=== PATIENT | female | born 1970 | race Caucasian/White ===

== ENCOUNTER 2019-07-17 11:56 | Observation (INO) | payer BC ==
[2019-07-17] MEDS ORDERED: MECLIZINE 12.5 MG TAB PO STA ×2 (12:53→14:55)
[2019-07-17] MEDS ORDERED: SODIUM CHLORIDE 0.9% 1,000 ML IV STA (12:53)
[2019-07-17] MEDS ORDERED: ONDANSETRON 4 MG/2 ML VIAL IVP STA (12:54)
--- NOTE | 2019-07-17 13:35 | ED ---
Dizziness HPI - General Chief Complaint: Dizziness Stated Complaint: dizziness Time Seen by Provider: 07/17/19 12:22 Source: patient Mode of arrival: wheelchair Limitations: no limitations - History of Present Illness Initial Comments: Patient is a 48-year-old female presenting to the emergency Department with complaints of dizziness 4 days. Patient states she had an episode approximate 4 days ago when she turned her head over in the morning and experienced the room spinning. The episodes usually last 1-2 minutes and then her symptoms improved. Patient notices it the worse when she turns her head mostly to the right. Patient states she got concerned when her symptoms started this morning and have been consistent. Patient states she is feeling a little nauseous. Patient denies any fever, chills, chest pain, shortness of breath, belly pain. Patient denies any recent injuries or trauma. Patient denies ever having these symptoms before. Patient has no other complaints at this time. Upon arrival to the ER, vital signs are stable. - Related Data Home Medications Medication Instructions Recorded Confirmed Modafinil [Provigil] 200 mg PO BID 07/17/19 07/17/19 Venlafaxine HCl [Effexor XR] 225 mg PO DAILY 07/17/19 07/17/19 lamoTRIgine [LaMICtal] 200 mg PO HS 07/17/19 07/17/19 Allergies Allergy/AdvReac Type Severity Reaction Status Date / Time atropine [From ] AdvReac Rash/Hives Verified 07/17/19 15:55 bee pollen AdvReac Anaphylaxis Verified 07/17/19 15:55 butorphanol [From Stadol] AdvReac Hallucinati Verified 07/17/19 15:55 ons hyoscyamine [From ] AdvReac Rash/Hives Verified 07/17/19 15:55 phenobarbital [From ] AdvReac Rash/Hives Verified 07/17/19 15:55 scopolamine [From ] AdvReac Rash/Hives Verified 07/17/19 15:55 Review of Systems ROS Statement: Those systems with pertinent positive or pertinent negative responses have been documented in the HPI. ROS Other: All systems not noted in ROS Statement are negative. Past Medical History Additional Past Medical History / Comment(s): narcolepsy History of Any Multi-Drug Resistant Organisms: None Reported Past Surgical History: No Surgical Hx Reported Past Psychological History: Bipolar Smoking Status: Never smoker Past Alcohol Use History: Occasional Past Drug Use History: None Reported General Exam - General Exam Comments Initial Comments: GENERAL: Well-appearing, well-nourished and in no acute distress. HEAD: Atraumatic, normocephalic. EYES: Pupils equal round and reactive to light, extraocular movements intact, sclera anicteric, conjunctiva are normal. ENT: TMs normal, nares patent, oropharynx clear without exudates. Moist mucous membranes. NECK: Normal range of motion, supple without lymphadenopathy or JVD. LUNGS: Breath sounds clear to auscultation bilaterally and equal. No wheezes rales or rhonchi. HEART: Regular rate and rhythm without murmurs, rubs or gallops. ABDOMEN: Soft, nontender, normoactive bowel sounds. No guarding, no rebound. No masses appreciated. : Deferred EXTREMITIES: Normal range of motion, no pitting or edema. No clubbing or cyanosis. NEUROLOGICAL: Cranial nerves II through XII grossly intact. Normal speech, normal gait. PSYCH: Normal mood, normal affect. SKIN: Warm, Dry, normal turgor, no rashes or lesions noted. Limitations: no limitations Course Vital Signs 07/17/19 07/17/19 07/17/19 12:02 14:28 16:43 Temperature 97.7 F Pulse Rate 75 70 67 Respiratory 16 18 18 Rate Blood Pressure 134/82 139/90 136/86 O2 Sat by Pulse 99 99 98 Oximetry EKG Findings - EKG Comments: EKG Findings:: Ventricular rate 71, MS interval 140, QTC 4:15. Normal sinus rhythm. No acute ST segment changes. Medical Decision Making - Medical Decision Making Patient is a 40-year-old female presenting with vertigo-type symptoms 4 days. Her symptoms started intermittently but then today they have been constant. Exam is unremarkable today. No red flag symptoms. Lab work shows no acute processes. Patient was given fluids, Zofran, Antivert, Reglan, Valium, Benadryl without relief of symptoms. At this time a CT of the head was obtained and shows no acute abnormalities. Case is discussed with Dr. Sanchez who agrees patient should be admitted under observation with consult to neurology. Patient has agreement with this plan of care. We will continue with meclizine and Reglan and as needed. Patient was accepted by Dr. Goins. - Lab Data Result diagrams: 07/17/19 13:19 07/17/19 13:19 Lab Results 07/17/19 07/17/19 07/17/19 Range/Units 12:20 13:19 13:19 WBC 8.4 (3.8-10.6) k/uL RBC 4.40 (3.80-5.40) m/uL Hgb 13.8 (11.4-16.0) gm/dL Hct 41.4 (34.0-46.0) % MCV 94.1 (80.0-100.0) fL MCH 31.5 (25.0-35.0) pg MCHC 33.4 (31.0-37.0) g/dL RDW 12.4 (11.5-15.5) % Plt Count 318 (150-450) k/uL Neutrophils % 66 % Lymphocytes % 24 % Monocytes % 4 % Eosinophils % 4 % Basophils % 1 % Neutrophils # 5.5 (1.3-7.7) k/uL Lymphocytes # 2.0 (1.0-4.8) k/uL Monocytes # 0.4 (0-1.0) k/uL Eosinophils # 0.3 (0-0.7) k/uL Basophils # 0.1 (0-0.2) k/uL Sodium 139 (137-145) mmol/L Potassium 4.6 (3.5-5.1) mmol/L Chloride 107 (98-107) mmol/L Carbon Dioxide 25 (22-30) mmol/L Anion Gap 7 mmol/L BUN 10 (7-17) mg/dL Creatinine 0.83 (0.52-1.04) mg/dL Est GFR (CKD-EPI)AfAm >90 (>60 ml/min/1.73 sqM) Est GFR (CKD-EPI)NonAf 84 (>60 ml/min/1.73 sqM) Glucose 96 (74-99) mg/dL Calcium 9.1 (8.4-10.2) mg/dL Total Bilirubin 0.6 (0.2-1.3) mg/dL AST 20 (14-36) U/L ALT 17 (9-52) U/L Alkaline Phosphatase 69 (38-126) U/L Total Protein 7.5 (6.3-8.2) g/dL Albumin 4.1 (3.5-5.0) g/dL Urine Color Yellow Urine Appearance Clear (Clear) Urine pH 5.5 (5.0-8.0) Ur Specific [place] 1.014 (1.001-1.035) Urine Protein Negative (Negative) Urine Glucose (UA) Negative (Negative) Urine Ketones Negative (Negative) Urine Blood Negative (Negative) Urine Nitrite Negative (Negative) Urine Bilirubin Negative (Negative) Urine Urobilinogen <2.0 (<2.0) mg/dL Ur Leukocyte Esterase Trace H (Negative) Urine RBC 3 (0-5) /hpf Urine WBC 2 (0-5) /hpf Ur Squamous Epith Cells 3 (0-4) /hpf Urine Bacteria Rare H (None) /hpf Urine Mucus Occasional H (None) /hpf Disposition Clinical Impression: Vertigo Disposition: [facility] Condition: Stable Is patient prescribed a controlled substance at d/c from ED?: No Decision Date: 07/17/19 Decision Time: 17:29
[2019-07-17 13:40] LABS: Basophils # (A) 0.1 k/uL (0-0.2); Basophils % (A) 1 %; Eosinophils # (A) 0.3 k/uL (0-0.7); Eosinophils % (A) 4 %; HCT 41.4 % (34.0-46.0); HGB 13.8 gm/dL (11.4-16.0); Lymphocytes % (A) 24 %; MCH 31.5 pg (25.0-35.0); MCHC 33.4 g/dL (31.0-37.0); MCV 94.1 fL (80.0-100.0); Mean Platelet Volume 6.8; Monocytes # (A) 0.4 k/uL (0-1.0); Monocytes % (A) 4 %; Neutrophils # (A) 5.5 k/uL (1.3-7.7); Neutrophils % (A) 66 %; Platelet Count 318 k/uL (150-450); RDW 12.4 % (11.5-15.5); WBC 8.4 k/uL (3.8-10.6)
[2019-07-17 13:48] LABS: ALT 17 U/L (9-52); AST 20 U/L (14-36); African American GFR (CKD) >90 (>60 ml/min/1.73 sqM); Albumin 4.1 g/dL (3.5-5.0); Alkaline Phosphatase 69 U/L (38-126); Anion Gap 7 mmol/L; Blood Urea Nitrogen 10 mg/dL (7-17); Calcium 9.1 mg/dL (8.4-10.2); Carbon Dioxide 25 mmol/L (22-30); Chloride 107 mmol/L (98-107); Glucose 96 mg/dL (74-99); Non-African American GFR(CKD) 84 (>60 ml/min/1.73 sqM); Potassium 4.6 mmol/L (3.5-5.1); Sodium 139 mmol/L (137-145); Total Bilirubin 0.6 mg/dL (0.2-1.3); Total Protein 7.5 g/dL (6.3-8.2)
[2019-07-17 14:01] LABS: Appearance,Urine Clear (Clear); Bacteria,Urine Rare /hpf; Bilirubin,Urine Negative (Negative); Blood,Urine Negative (Negative); Color,Urine Yellow; Glucose,Urine (UA) Negative (Negative); Ketones,Urine Negative (Negative); Leukocyte Esterase,Urine Trace (Negative); Mucus,Urine Occasional /hpf; Nitrite,Urine Negative (Negative); PH, Urine 5.5 (5.0-8.0); Protein,Urine Negative (Negative); RBC,Urine 3 /hpf (0-5); Specific Gravity,Urine 1.014 (1.001-1.035); Squamous Epithelial Cell,Urine 3 /hpf (0-4); Urobilinogen,Urine <2.0 mg/dL (<2.0); WBC,Urine 2 /hpf (0-5)
[2019-07-17] MEDS ORDERED: diphenhydrAMINE 50 MG/ML 1 ML VIAL IVP STA (14:11)
[2019-07-17] MEDS ORDERED: METOCLOPRAMIDE 5 MG/ML 2 ML VIAL IVP STA (14:55)
[2019-07-17] MEDS ORDERED: DIAZEPAM 5 MG/ML 2 ML INJ IVP STA (15:59)
--- NOTE | 2019-07-17 16:21 | CT ---
EXAMINATION TYPE: CT brain wo con DATE OF EXAM: 07/17/2019 COMPARISON: None HISTORY: Dizziness, vertigo since Thursday. CT DLP: 1091.4 mGycm. Automated Exposure Control for Dose Reduction was Utilized. TECHNIQUE: CT scan of the head is performed without contrast. FINDINGS: Ventricles have normal size. There is no mass effect nor midline shift. There is no sign of intracranial hemorrhage. Calvarium is intact. There is no evidence of cerebral edema. IMPRESSION: Normal head CT scan.
[2019-07-17] MEDS ORDERED: NALOXONE 0.4 MG/ML 1 ML VIAL IV PRN (17:19)
[2019-07-17] MEDS ORDERED: ALPRAZolam 0.25 MG TAB PO PRN (17:19)
[2019-07-17] MEDS ORDERED: ACETAMINOPHEN TAB 325 MG TAB PO PRN (17:19)
[2019-07-17] MEDS ORDERED: METOCLOPRAMIDE 5 MG/ML 2 ML VIAL IVP PRN (21:00)
[2019-07-18] MEDS: HEPARIN SODIUM,PORCINE 5,000 UNIT/ML 1 ML VIAL SQ SCH ×2 (09:09→20:51)
[2019-07-18] MEDS: FAMOTIDINE 20 MG/2 ML VIAL IV SCH ×2 (09:09→20:51)
[2019-07-18] MEDS: MECLIZINE 25 MG TAB PO SCH (09:10)
[2019-07-18] MEDS: MODAFINIL 200 MG TAB PO SCH ×2 (09:14→17:10)
--- NOTE | 2019-07-18 10:15 | P.HPIM ---
History of Present Illness This is a pleasant 48 years old female with past medical history of narcolepsy and bipolar. Presents because of dizziness . Patient states since Thursday, which is 5 days ago she started having some dizziness it's like the room is spinning around her head, associated with some nausea but no vomiting, gradually gets worse over the coming 2-3 days so she decided to come to the hospital. She denies headache, no weakness or numbness in extremities. No difficulty swallowing or blurred vision. Also she denies other complaints like no chest pain or dyspnea. No change in urine or bowel habits. Patient had similar episode in 2006 after delivery of her baby at bedtime she seen several tacks is still eventually went to [facility] when they diagnosed her with narcolepsy and started her on vaginal to keep her awake, she still get narcolepsy episodes although it's improved with her medicine, no more dizziness since 2006 until it was started 5 days ago Her dizziness is worse when moving her head especially on the right side but also performed and back worse. Nystagmus Vitas looks stable. Labs including CBC, BMP, liver enzymes, urinalysis were unremarkable. EKG showing normal sinus rhythm at [address]-T changes. CT of the brain showing no acute process. On the presentation patient was given meclizine and 1 dose of diazepam as was as 1 L of normal saline bolus. Neuro consult was called from the emergency room she still have pressure was cycle, I offered test however she declines this same that this is not a possibility. Risks, benefits and alternatives are explained for the patient. Review of Systems CONSTITUTIONAL: No fever, no malaise, no fatigue. HEENT: No recent visual problems or hearing problems. Denied any sore throat. CARDIOVASCULAR: No orthopnea, PND, no palpitations, no syncope. PULMONARY: No shortness of breath, no cough, no hemoptysis. GASTROINTESTINAL: No diarrhea, no nausea, no vomiting, no abdominal pain. Normoactive bowel sounds. NEUROLOGICAL: No headaches, no weakness, no numbness. HEMATOLOGICAL: Denies any bleeding or petechiae. GENITOURINARY: Denies any burning micturition, frequency, or urgency. MUSCULOSKELETAL/RHEUMATOLOGICAL: Denies any joint pain, swelling, or any muscle pain. ENDOCRINE: Denies any polyuria or polydipsia. Past Medical History Additional Past Medical History / Comment(s): narcolepsy History of Any Multi-Drug Resistant Organisms: None Reported Past Surgical History: No Surgical Hx Reported Past Anesthesia/Blood Transfusion Reactions: No Reported Reaction Past Psychological History: Bipolar Smoking Status: Never smoker Past Alcohol Use History: Occasional Past Drug Use History: None Reported - Past Family History Mother Family Medical History: No Reported History Medications and Allergies Home Medications Medication Instructions Recorded Confirmed Type Modafinil [Provigil] 200 mg PO BID 07/17/19 07/17/19 History Venlafaxine HCl [Effexor XR] 225 mg PO DAILY 07/17/19 07/17/19 History lamoTRIgine [LaMICtal] 200 mg PO HS 07/17/19 07/17/19 History Allergies Allergy/AdvReac Type Severity Reaction Status Date / Time atropine [From ] AdvReac Rash/Hives Verified 07/17/19 15:55 bee pollen AdvReac Anaphylaxis Verified 07/17/19 15:55 butorphanol [From Stadol] AdvReac Hallucinati Verified 07/17/19 15:55 ons hyoscyamine [From ] AdvReac Rash/Hives Verified 07/17/19 15:55 phenobarbital [From ] AdvReac Rash/Hives Verified 07/17/19 15:55 scopolamine [From ] AdvReac Rash/Hives Verified 07/17/19 15:55 Physical Exam Vitals: Vital Signs Temp Pulse Pulse Resp BP BP Pulse Ox 07/18/19 05:00 98.3 F 67 16 99/64 97 07/18/19 00:00 16 07/17/19 21:56 98.1 F 71 16 107/69 95 07/17/19 16:43 67 18 136/86 98 07/17/19 14:28 70 18 139/90 99 07/17/19 12:02 97.7 F 75 16 134/82 99 Intake and Output 07/17/19 07/17/19 07/18/19 14:59 22:59 06:59 Intake Total 950 590 Balance 950 590 Intake: Oral 950 590 Other: # Voids 1 2 Weight 79.379 kg GENERAL: The patient is alert and oriented x3, not in any acute distress. Well developed, well nourished. HEENT: Pupils are round and equally reacting to light. EOMI. No scleral icterus. No conjunctival pallor. Normocephalic, atraumatic. No pharyngeal erythema. No thyromegaly. CARDIOVASCULAR: S1 and S2 present. No murmurs, rubs, or gallops. PULMONARY: Chest is clear to auscultation, no wheezing or crackles. ABDOMEN: Soft, nontender, nondistended, normoactive bowel sounds. No palpable organomegaly. MUSCULOSKELETAL: No joint swelling or deformity. EXTREMITIES: No cyanosis, clubbing, or pedal edema. NEUROLOGICAL: Gross neurological examination did not reveal any focal deficits. SKIN: No rashes. No petechiae Results CBC & Chem 7: 07/17/19 13:19 07/17/19 13:19 Labs: Abnormal Lab Results - Last 24 Hours (Table) 07/17/19 Range/Units 12:20 Ur Leukocyte Esterase Trace H (Negative) Urine Bacteria Rare H (None) /hpf Urine Mucus Occasional H (None) /hpf Thrombosis Risk Factor Assmnt - Choose All That Apply Any of the Below Risk Factors Present?: Yes Each Factor Represents 1 point: Age 41-60 years, Obesity (BMI >25) Other Risk Factors: No Other congenital or acquired thrombophilia - If yes, enter type in comment: No Thrombosis Risk Factor Assessment Total Risk Factor Score: 2 Thrombosis Risk Factor Assessment Level: Low Risk Assessment and Plan Assessment: acute dizziness and vertigo History of narcolepsy History of bipolar Plan: This is a pleasant 48 years old female who presents because of acute dizziness. Continue with meclizine as needed and call neurology consult Labs and medication were reviewed.. Continue same treatment. Continue with symptomatic treatment. Resume home medication. Monitor lytes and vitals. DVT and GI prophylaxis. Further recommendations of the clinical course of the patient DVT prophylaxis: Subcutaneous heparin GI Prophylaxis: Pepcid PT/OT: Pending Prognosis is guarded
[2019-07-18] MEDS: VENLAFAXINE HCL ER 75 MG CAP PO SCH (10:28)
--- NOTE | 2019-07-18 16:38 | P.CNNES ---
History of Present Illness Consult date: 07/18/19 Requesting physician: Uday Goins Reason for Consult: Vertigo History of Present Illness: Patient is a 48-year-old female, who states that on 07/13/2019 at 9:30 PM when she laid down into her bed and turned over, noticed sudden onset of vertigo. The symptoms resolved, but even at night whenever she would get up, and try to move, the symptoms would occur. and Thursday it slowly got worse. On Thursday and Thursday, it continued throughout the day off and on, every time she would move. Patient therefore decided to come to the ER and arrived here at around noon. Patient denies any focal numbness tingling, slurred speech, facial droop, diplopia. Denies any recent cold or upper respiratory infection, any ear infection ALLERGIES or tinnitus. Patient underwent computed tomography scan of the head, which was normal. EKG shows normal sinus rhythm. Patient was started on Antivert and her symptoms have improved. The symptoms are worse when she turns her head or body to the right side. Patient states that in 2006, when she was with her fourth child, after delivery she suffered from mono. Patient states that sometimes afterwards, she also had symptoms of BPPV, that lasted for a few months. Patient attributed the symptoms to her mono, and also was diagnosed with narcolepsy at that time. Patient has history of bipolar disorder since age 20 for which he takes Lamictal and Effexor. Review of Systems As above. Patient does have benign familial tremors. Denies chest pain shortness of breath, denies any head or neck injury. Denies any diplopia, loss of vision. Denies abdominal pain. All other review of systems negative. Past Medical History Additional Past Medical History / Comment(s): narcolepsy History of Any Multi-Drug Resistant Organisms: None Reported Past Surgical History: No Surgical Hx Reported Past Anesthesia/Blood Transfusion Reactions: No Reported Reaction Past Psychological History: Bipolar Smoking Status: Never smoker Past Alcohol Use History: Occasional Past Drug Use History: None Reported - Past Family History Mother Family Medical History: No Reported History Medications and Allergies Home Medications Medication Instructions Recorded Confirmed Type Modafinil [Provigil] 200 mg PO BID 07/17/19 07/17/19 History Venlafaxine HCl [Effexor XR] 225 mg PO DAILY 07/17/19 07/17/19 History lamoTRIgine [LaMICtal] 200 mg PO HS 07/17/19 07/17/19 History Allergies Allergy/AdvReac Type Severity Reaction Status Date / Time atropine [From ] AdvReac Rash/Hives Verified 07/17/19 15:55 bee pollen AdvReac Anaphylaxis Verified 07/17/19 15:55 butorphanol [From Stadol] AdvReac Hallucinati Verified 07/17/19 15:55 ons hyoscyamine [From ] AdvReac Rash/Hives Verified 07/17/19 15:55 phenobarbital [From ] AdvReac Rash/Hives Verified 07/17/19 15:55 scopolamine [From ] AdvReac Rash/Hives Verified 07/17/19 15:55 Physical Examination - Vital Signs Vital Signs: Vital Signs Temp Pulse Pulse Resp BP BP Pulse Ox 07/18/19 12:01 98 F 58 L 16 104/65 100 07/18/19 05:00 98.3 F 67 16 99/64 97 07/18/19 00:00 16 07/17/19 21:56 98.1 F 71 16 107/69 95 07/17/19 16:43 67 18 136/86 98 Intake and Output 07/18/19 07/18/19 07/18/19 06:59 14:59 22:59 Intake Total 590 Balance 590 Intake: Oral 590 Other: # Voids 2 On examination patient is a middle aged female, in no distress. Patient is alert and awake oriented to time place and person. Speech and language functions are normal. Attention and concentration, fund of knowledge i s adequate. On cranial nerve examination pupils are round and reactive to light, visual scott are full on confrontation. Extraocular muscles are intact with no nystagmus. Face is symmetric and tongue protrudes to the midline. Palatal elevation and sensation normal. Otologic examination revealed no excessive wax. On muscle strength testing there is no pronator drift and the strength is normal in arms and legs distally and proximally. No ataxia for [id number] testing. Patient does have some Tremors of her outstretched hands. Tone and bulk of muscles normal. Patient was able to walk at her normal base, stride and arm swing. There is no carotid bruit or murmur, peripheral pulses present. Results - Laboratory Findings CBC and BMP: 07/17/19 13:19 07/17/19 13:19 Abnormal Lab Findings: Abnormal Labs 07/17/19 12:20 Ur Leukocyte Esterase Trace H Urine Bacteria Rare H Urine Mucus Occasional H Assessment and Plan Assessment: * Probable benign positional peripheral vertigo. (BPPV) * Patient has history of similar vertigo in 2006 as well, that lasted for couple months. * Benign familial tremor * Bipolar disorder, controlled Plan: * Patient's dizziness have improved. * Patient will try vestibular rehabilitation, if symptoms persist. Prescription was provided. * Patient will take Antivert 12.5-25 mg once or twice a day sparingly as needed. * Neurologically patient is clear for discharge.
[2019-07-18] MEDS ORDERED: SODIUM CHLORIDE 0.9% 500 ML 500 ML IV ONE (19:51)
[2019-07-18] MEDS: SODIUM CHLORIDE 0.9% 1,000 ML IV SCH (20:51)
[2019-07-18] MEDS ORDERED: lamoTRIgine 100 MG TAB PO SCH (21:00)
[2019-07-19] MEDS: SODIUM CHLORIDE 0.9% 1,000 ML IV SCH ×3 (02:13→16:54)
[2019-07-19] MEDS: FAMOTIDINE 20 MG/2 ML VIAL IV SCH (07:46)
[2019-07-19] MEDS: HEPARIN SODIUM,PORCINE 5,000 UNIT/ML 1 ML VIAL SQ SCH (07:53)
[2019-07-19] MEDS: MECLIZINE 25 MG TAB PO SCH (07:53)
[2019-07-19] MEDS: VENLAFAXINE HCL ER 75 MG CAP PO SCH (07:54)
[2019-07-19] MEDS: MODAFINIL 200 MG TAB PO SCH ×2 (09:05→16:54)
[2019-07-19 11:34] VITALS: BP 123/72; PULSE 70; RESP 14; TEMP 98.1
--- NOTE | 2019-07-19 11:39 | P.PN ---
Subjective Progress Note Date: 07/19/19 Patient continues to feel dizzy whenever she moves her head or body. It is worse when she turns or rollovers onto the right side, as compared to the left. But can occur when she looks down, or up and lasts for a few seconds and then resolves. Patient denies any new focal symptoms. Objective - Vital Signs Vital signs: Vital Signs Temp 98.1 F 07/19/19 11:34 Pulse 70 07/19/19 11:34 Resp 14 07/19/19 11:34 BP 123/72 07/19/19 11:34 Pulse Ox 96 07/19/19 11:34 Intake & Output 07/18/19 07/19/19 07/19/19 18:59 06:59 18:59 Intake Total 540 960 Balance 540 960 Intake: Oral 540 960 Other: Voiding Method Toilet # Voids 2 1 - Exam Mental status, speech and language functions are normal. Patient does get dizzy, on movement of the body, to the right, to the left or when she looks down or up. - Labs CBC & Chem 7: 07/17/19 13:19 07/17/19 13:19 Assessment and Plan Assessment: * Probable benign positional peripheral vertigo. (BPPV) * Patient has history of similar vertigo in 2006 as well, that lasted for couple months. * Benign familial tremor * Bipolar disorder, controlled Plan: * Patient's positional dizziness has persisted. Suggest PT evaluation for a possible vestibular rehabilitation, if can be performed in the hospital before discharge. * Antivert 12.5-25 mg once or twice a day sparingly as needed. * We will check B12, folate.
[2019-07-19 19:15] LABS: Folate, Serum 12.6 ng/mL
[2019-07-19] MEDS ORDERED: FAMOTIDINE 20 MG TAB PO SCH (21:00)
--- NOTE | 2019-07-19 22:27 | P.DS ---
Providers Date of admission: 07/17/19 17:18 Attending physician: Uday Goins MD Consults: 07/17/19 17:19 Consult Physician Stat Consulting Provider: Adrienne Roberts Consult Reason/Comments: Vertigo, intractable Do you want consulting provider notified?: Yes, Notify in am 07/18/19 14:20 Consult Physician Stat Consulting Provider: Jaspreet Bernabe Consult Reason/Comments: vertigo Do you want consulting provider notified?: Yes Primary care physician: Perla Raymundo Hospital Course: Dx: Probable benign positional peripheral vertigo. (BPPV) History of narcolepsy History of bipolar Hospital course: This is a pleasant 48 years old female with past medical history of narcolepsy and bipolar. Presents because of dizziness and vertigo for 5 days duration. Her vertigo happens whenever she moves her head to either side, more towards the right side. Chest similar an episode in 2006 that lasted for 2 months. After that patient was diagnosed with narcolepsy and she was on Provigil which have her keeping her awake until she started getting vertical this time.She denies headache, no weakness or numbness in extremities. No difficulty swallowing or blurred vision. CT of the brain showing no acute process. Also blood pressure was on the low side 99/64, she received some IV fluids and her blood pressure improved to 112/60 this morning. Heart rate is low normal at 59-69 this morning. TSH is within normal limits at 2.0. Patient has been evaluated by neurologist who recommended meclizine as needed and possible vestibular rehabilitation and he cleared her for discharge.physical therapy evaluated is obtained prior to discharge and they recommended home with no need for further physical therapy also the neurologist recommended to check vit. B12 and folate however pt did not want to wait for the test and want to be discharge, as an alternative she agrees to follow up with her pcp in 3 day on 07/22 , pt is aware with her f/u appointment and she agrees to it. risks of low vit b12 are explained for the pt in details including but not limited to risk of perminant nerve damage like vertigo , paralysis , dementia and others , she verbalized understanding and acceptance . also i called and discussed with her the above including the need to check vit b12/folate and kindly took note of this Patient feels that she is close to her baseline and she wants to go home from yesterday. Problems and management plan were discussed with the patient and he verbalized understanding and acceptance Patient was found stable and can be discharged home however he needs follow-up as an outpatient. Patient was instructed to follow up with PCP within one week and patient agrees. pt agrees with appointment as above , also she agrees to follow up with neurologist as outpt , was contact and they wanted to contact the pt directly for appointment and pt is made aware of this and she agrees. Gen: patient is a AAOx3, no distress CVS: S1-S2, RRR, no murmur Lungs: B/L CTA, no wheezing Abdomen: soft, no distention, no tenderness, positive bowel sounds Extremity: no leg edema or induration Time spent more than 35 minutes Patient Condition at Discharge: Stable Plan - Discharge Summary New Discharge Prescriptions: New Meclizine [Antivert] 25 mg PO BID PRN #20 tab PRN Reason: Vertigo Continue lamoTRIgine [LaMICtal] 200 mg PO HS Venlafaxine HCl [Effexor XR] 225 mg PO DAILY Modafinil [Provigil] 200 mg PO BID Discharge Medication List Modafinil [Provigil] 200 mg PO BID 07/17/19 [History] Venlafaxine HCl [Effexor XR] 225 mg PO DAILY 07/17/19 [History] lamoTRIgine [LaMICtal] 200 mg PO HS 07/17/19 [History] Meclizine [Antivert] 25 mg PO BID PRN #20 tab 07/19/19 [Rx] Follow up Appointment(s)/Referral(s): Inder Rothman DO [STAFF PHYSICIAN] - 10 Days (Patient to call Dr. Rothman's to schedule follow up appointment. Dr. Rothman's office has quesetions for the patient. ) Perla Raymundo MD [Primary Care Provider] - 07/22/19 11:30 am Patient Instructions/Handouts: Meclizine (By mouth), Vertigo (DC) Activity/Diet/Wound Care/Special Instructions: resume previous diet activity is limited till you see your doctor Discharge Disposition: HOME SELF-CARE
== END 2019-07-19 17:40 | disposition home or self-care (01) ==
LOC: EC 11:56 → 3NMEDONC 17:18
PROVIDERS: ADMIT Internal Medicine; ATTEND Internal Medicine
DX: R42 Dizziness and giddiness (principal); G47.419 Narcolepsy without cataplexy; F31.9 Bipolar disorder, unspecified; H55.00 Unspecified nystagmus; G25.0 Essential tremor; E66.9 Obesity, unspecified; Z68.31 Body mass index [BMI] 31.0-31.9, adult; Z79.899 Other long term (current) drug therapy; Z88.8 Allergy status to other drugs, medicaments and biological substances; Z91.030 Bee allergy status; Z88.5 Allergy status to narcotic agent; Z86.19 Personal history of other infectious and parasitic diseases
CPT/HCPCS: 96372 ×2; 96375 ×2; 96361; 96374; 99285; 36415; 93005; 97162; 80053; 84443; 82607; 82746; 85025; 81001; 70450; G0378 ×3; J1200; J1644 ×2; J2765; J3360; J2405

== ENCOUNTER → 2020-10-11 | Outpatient (CLI) | payer BC | END | disposition home or self-care (01) | LOC: LABWHC1 15:24 | PROVIDERS: ATTEND Internal Medicine | DX: R05 Cough (principal); R50.9 Fever, unspecified | CPT/HCPCS: U0003; C9803 ==

== ENCOUNTER 2020-10-12 15:15 | Emergency (ER) | payer BC ==
[2020-10-12] MEDS ORDERED: ONDANSETRON 4 MG/2 ML VIAL IVP STA (15:26)
[2020-10-12] MEDS ORDERED: SODIUM CHLORIDE 0.9% 500 ML 500 ML IV STA (15:26)
[2020-10-12] MEDS ORDERED: ACETAMINOPHEN TAB 500 MG TAB PO STA (15:32)
--- NOTE | 2020-10-12 15:34 | ED ---
General Adult HPI - General Chief complaint: Nausea/Vomiting/Diarrhea Stated complaint: Sent by PCP - COVID Time Seen by Provider: 10/12/20 15:21 Source: patient Mode of arrival: ambulatory Limitations: no limitations - History of Present Illness Initial comments: Dictation was produced using [employer] dictation software. please excuse any grammatical, word or spelling errors. This patient was cared for during a federal and state declared state of emergency secondary to Covid 19 Chief Complaint: 49-year-old female with past medical history of narcolepsy presents with nausea. She was diagnosed with covid 19 yesterday. History of Present Illness: 49-year-old female presents with nausea and poor oral intake. She has been having multiple bouts of nausea vomiting. Patient states she's been symptomatic for the last 48 hours. She had a Covid 19 test yesterday which was positive. She contacted her primary care physician who inst ructed her to come to the emergency department for intravenous fluids and to rule out bacterial pneumonia. Patient is a teacher. It's unclear where her exposure was from. Patient has any respiratory symptoms. The ROS documented in this emergency department record has been reviewed and confirmed by me. Those systems with pertinent positive or negative responses have been documented in the HPI. All other systems are other negative and/or noncontributory. PHYSICAL EXAM: General Impression: Alert and oriented x3, not in acute distress HEENT: Normocephalic atraumatic, extra-ocular movements intact, pupils equal and reactive to light bilaterally, dry mucous membranes. Cardiovascular: Heart regular rate and rhythm Chest: Able to complete full sentences, no retractions, no tachypnea Abdomen: abdomen soft, non-tender, non-distended, no organomegaly Musculoskeletal: Pulses present and equal in all extremities, no peripheral edema Motor: no focal deficits noted Neurological: CN II-XII grossly intact, no focal motor or sensory deficits noted Skin: Intact with no visualized rashes Psych: Normal affect and mood ED course: 49-year-old female presents with GI symptoms. She is test positive for Covid 19 yesterday vital signs upon arrival shows heart rate of 103, temperature 100.3, not hypoxic, normal blood pressure. Patient does not have any respiratory symptoms. Neither does she have any signs of respiratory distress. EKG interpretation: Ventricular rate 93, normal sinus rhythm, CO interval 146, QRS 80, QTc 445. No CO prolongation, no QTC prolongation, no ST or T-wave change s noted. EKG compared to 2018 showing no changes. Overall, this EKG is unremarkable Laboratory evaluation obtained. CBC unremarkable. Metabolic panel is negative. CRP slightly elevated. Chest x-ray and abdominal x-ray shows findings consistent with interstitial pneumonitis. There is nonspecific abdominal complaints consistent with ileus versus enteritis.Patient reevaluated bedside approximately 40 5 PM. She still appears symptomatic. She does not feel well and her symptoms are difficult to control. Patient be admitted for intractable nausea vomiting. She be admitted for medical monitoring, IV fluids and symptom control. Patient will be admitted to [facility]. - Related Data Home Medications Medication Instructions Recorded Confirmed Venlafaxine HCl [Effexor XR] 225 mg PO DAILY 07/17/19 07/17/19 lamoTRIgine [LaMICtal] 200 mg PO HS 07/17/19 07/17/19 modafiniL [Provigil] 200 mg PO BID 07/17/19 07/17/19 Previous Rx's Medication Instructions Recorded Meclizine [Antivert] 25 mg PO BID PRN #20 tab 07/19/19 Allergies Allergy/AdvReac Type Severity Reaction Status Date / Time atropine [From ] AdvReac Rash/Hives Verified 10/12/20 15:19 bee pollen AdvReac Anaphylaxis Verified 10/12/20 15:19 butorphanol [From Stadol] AdvReac Hallucinati Verified 10/12/20 15:19 ons hyoscyamine [From ] AdvReac Rash/Hives Verified 10/12/20 15:19 phenobarbital [From ] AdvReac Rash/Hives Verified 10/12/20 15:19 scopolamine [From ] AdvReac Rash/Hives Verified 10/12/20 15:19 Review of Systems ROS Statement: Those systems with pertinent positive or pertinent negative responses have been documented in the HPI. ROS Other: All systems not noted in ROS Statement are negative. Past Medical History Additional Past Medical History / Comment(s): narcolepsy History of Any Multi-Drug Resistant Organisms: None Reported Past Surgical History: No Surgical Hx Reported Past Anesthesia/Blood Transfusion Reactions: No Reported Reaction Past Psychological History: Bipolar Smoking Status: Never smoker Past Alcohol Use History: Occasional Past Drug Use History: None Reported - Past Family History Mother Family Medical History: No Reported History General Exam Limitations: no limitations Course Vital Signs 10/12/20 15:17 Temperature 100.3 F H Pulse Rate 103 H Respiratory 20 Rate Blood Pressure 117/62 O2 Sat by Pulse 96 Oximetry Medical Decision Making - Lab Data Result diagrams: 10/12/20 15:37 10/12/20 15:37 Lab Results 10/12/20 10/12/20 Range/Units 15:37 15:37 WBC 8.6 (3.8-10.6) k/uL RBC 4.26 (3.80-5.40) m/uL Hgb 13.4 (11.4-16.0) gm/dL Hct 38.4 (34.0-46.0) % MCV 90.3 (80.0-100.0) fL MCH 31.5 (25.0-35.0) pg MCHC 34.9 (31.0-37.0) g/dL RDW 11.7 (11.5-15.5) % Plt Count 211 (150-450) k/uL MPV 7.5 Neutrophils % 89 % Lymphocytes % 5 % Monocytes % 5 % Eosinophils % 0 % Basophils % 1 % Neutrophils # 7.7 (1.3-7.7) k/uL Lymphocytes # 0.4 L (1.0-4.8) k/uL Monocytes # 0.4 (0-1.0) k/uL Eosinophils # 0.0 (0-0.7) k/uL Basophils # 0.1 (0-0.2) k/uL Sodium 134 L (137-145) mmol/L Potassium 3.4 L (3.5-5.1) mmol/L Chloride 100 (98-107) mmol/L Carbon Dioxide 23 (22-30) mmol/L Anion Gap 11 mmol/L BUN 14 (7-17) mg/dL Creatinine 1.01 (0.52-1.04) mg/dL Est GFR (CKD-EPI)AfAm 76 (>60 ml/min/1.73 sqM) Est GFR (CKD-EPI)NonAf 66 (>60 ml/min/1.73 sqM) Glucose 118 H (74-99) mg/dL Calcium 8.5 (8.4-10.2) mg/dL Magnesium 1.9 (1.6-2.3) mg/dL Total Bilirubin 0.7 (0.2-1.3) mg/dL AST 36 (14-36) U/L ALT 26 (4-34) U/L Alkaline Phosphatase 52 (38-126) U/L C-Reactive Protein 54.3 H (<10.0) mg/L Total Protein 7.4 (6.3-8.2) g/dL Albumin 3.8 (3.5-5.0) g/dL Disposition Clinical Impression: COVID-19, Ileus Disposition: ADMITTED IP TO THIS HOSP Condition: Fair Referrals: Perla Raymundo MD [Primary Care Provider] - 1-2 days Decision Time: 16:14
[2020-10-12 15:47] LABS: Basophils # (A) 0.1 k/uL (0-0.2); Basophils % (A) 1 %; Eosinophils % (A) 0 %; HCT 38.4 % (34.0-46.0); HGB 13.4 gm/dL (11.4-16.0); Lymphocytes # (A) 0.4 k/uL (1.0-4.8); Lymphocytes % (A) 5 %; MCH 31.5 pg (25.0-35.0); MCHC 34.9 g/dL (31.0-37.0); MCV 90.3 fL (80.0-100.0); Mean Platelet Volume 7.5; Monocytes # (A) 0.4 k/uL (0-1.0); Monocytes % (A) 5 %; Neutrophils # (A) 7.7 k/uL (1.3-7.7); Neutrophils % (A) 89 %; Platelet Count 211 k/uL (150-450); RBC 4.26 m/uL (3.80-5.40); RDW 11.7 % (11.5-15.5); WBC 8.6 k/uL (3.8-10.6)
--- NOTE | 2020-10-12 16:00 | XR ---
EXAMINATION TYPE: XR abdomen acute w cxr DATE OF EXAM: 10/12/2020 COMPARISON: None HISTORY: Nausea, vomiting and fever TECHNIQUE: Supine, upright, and left side down lateral decubitus views of the abdomen are obtained. FINDINGS: Coarsened interstitium but limited inspiration. No consolidative changes. No pleural effusi on or pneumothorax. Scoliosis with arthropathy of the hips. There is multiple air-fluid levels. No suspicious calcificati ons. IMPRESSION: 1. Nonspecific abdomen correlate for ileus or enteritis. Partial obstructive pattern not excluded cor relate clinically. 2. No consolidative pneumonia. Correlate for bronchitis or interstitial pneumonitis.
[2020-10-12 16:02] LABS: Albumin 3.8 g/dL (3.5-5.0); C Reactive Protein 54.3 mg/L (<10.0); Calcium 8.5 mg/dL (8.4-10.2); Magnesium 1.9 mg/dL (1.6-2.3); Potassium 3.4 mmol/L (3.5-5.1); Total Bilirubin 0.7 mg/dL (0.2-1.3); Total Protein 7.4 g/dL (6.3-8.2)
[2020-10-12] MEDS ORDERED: DEXAMETHASONE SOD PHOSPHATE 10 MG/ML 1 ML VIAL IV STA (16:05)
[2020-10-12] MEDS ORDERED: SODIUM CHLORIDE 0.9% 1,000 ML IV STA (16:08)
[2020-10-12] MEDS ORDERED: METOCLOPRAMIDE 5 MG/ML 2 ML VIAL IVP STA (16:08)
[2020-10-12] MEDS ORDERED: NALOXONE 0.4 MG/ML 1 ML VIAL IV PRN (16:12)
[2020-10-12] MEDS ORDERED: ONDANSETRON 4 MG/2 ML VIAL IVP PRN (16:12)
[2020-10-12] MEDS ORDERED: ONDANSETRON 4 MG ODT STARTER PACK 2 TAB BTL PO STA (17:15)
--- NOTE | 2020-10-12 17:15 | ED ---
Medical Decision Making - Medical Decision Making I was notified by the nurse that at approximately 5:10 PM patient began feeling significantly better. She felt comfortable being discharged. Patient tolerating orals. She is given a starter pack for Zofran and sent a prescription for antiemetics. Return parameters discussed. Patient will be discharged. - Lab Data Result diagrams: 10/12/20 15:37 10/12/20 15:37 Lab Results 10/12/20 10/12/20 Range/Units 15:37 15:37 WBC 8.6 (3.8-10.6) k/uL RBC 4.26 (3.80-5.40) m/uL Hgb 13.4 (11.4-16.0) gm/dL Hct 38.4 (34.0-46.0) % MCV 90.3 (80.0-100.0) fL MCH 31.5 (25.0-35.0) pg MCHC 34.9 (31.0-37.0) g/dL RDW 11.7 (11.5-15.5) % Plt Count 211 (150-450) k/uL MPV 7.5 Neutrophils % 89 % Lymphocytes % 5 % Monocytes % 5 % Eosinophils % 0 % Basophils % 1 % Neutrophils # 7.7 (1.3-7.7) k/uL Lymphocytes # 0.4 L (1.0-4.8) k/uL Monocytes # 0.4 (0-1.0) k/uL Eosinophils # 0.0 (0-0.7) k/uL Basophils # 0.1 (0-0.2) k/uL Sodium 134 L (137-145) mmol/L Potassium 3.4 L (3.5-5.1) mmol/L Chloride 100 (98-107) mmol/L Carbon Dioxide 23 (22-30) mmol/L Anion Gap 11 mmol/L BUN 14 (7-17) mg/dL Creatinine 1.01 (0.52-1.04) mg/dL Est GFR (CKD-EPI)AfAm 76 (>60 ml/min/1.73 sqM) Est GFR (CKD-EPI)NonAf 66 (>60 ml/min/1.73 sqM) Glucose 118 H (74-99) mg/dL Calcium 8.5 (8.4-10.2) mg/dL Magnesium 1.9 (1.6-2.3) mg/dL Total Bilirubin 0.7 (0.2-1.3) mg/dL AST 36 (14-36) U/L ALT 26 (4-34) U/L Alkaline Phosphatase 52 (38-126) U/L C-Reactive Protein 54.3 H (<10.0) mg/L Total Protein 7.4 (6.3-8.2) g/dL Albumin 3.8 (3.5-5.0) g/dL Disposition Clinical Impression: COVID-19, Enteritis Disposition: HOME SELF-CARE Condition: Fair Is patient prescribed a controlled substance at d/c from ED?: No Time of Disposition: 17:14
[2020-10-12 17:57] VITALS: BP 101/63; PULSE 83; RESP 18; TEMP 98.4
[2020-10-12] MEDS ORDERED: ACETAMINOPHEN TAB 325 MG TAB PO SCH (18:00)
== END 2020-10-12 18:00 | disposition home or self-care (01) ==
LOC: EC 15:15 → 4SSUR 16:12 → UNDOADMIN 16:12 → UNDODISIN 17:56
DX: U07.1 COVID-19 (principal); K56.7 Ileus, unspecified; F31.9 Bipolar disorder, unspecified; G47.419 Narcolepsy without cataplexy; Z79.899 Other long term (current) drug therapy; Z88.8 Allergy status to other drugs, medicaments and biological substances; Z91.030 Bee allergy status
CPT/HCPCS: 36415; 93005; 80053; 83735; 85025; 86140; 74022; 99285; 96374; 96375 ×2; 96361; J1100; J2765; J2405; S0119

== ENCOUNTER 2021-09-08 19:07 | Emergency (ER) | payer OTHER, BC ==
[2021-09-08 19:35] LABS: Glucose,Whole Blood 87 mg/dL (75-99)
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
[2021-09-08 19:51] VITALS: RESP 18
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
[2021-09-08 19:56] LABS: Basophils # (A) 0.1 k/uL (0-0.2); Basophils % (A) 1 %; Eosinophils # (A) 0.2 k/uL (0-0.7); Eosinophils % (A) 2 %; HCT 43.5 % (34.0-46.0); HGB 14.2 gm/dL (11.4-16.0); Lymphocytes # (A) 1.6 k/uL (1.0-4.8); Lymphocytes % (A) 15 %; MCH 31.9 pg (25.0-35.0); MCHC 32.8 g/dL (31.0-37.0); MCV 97.4 fL (80.0-100.0); Mean Platelet Volume 7.8; Monocytes # (A) 0.5 k/uL (0-1.0); Monocytes % (A) 5 %; Neutrophils # (A) 7.8 k/uL (1.3-7.7); Neutrophils % (A) 75 %; Platelet Count 388 k/uL (150-450); RBC 4.46 m/uL (3.80-5.40); RDW 12.8 % (11.5-15.5); WBC 10.4 k/uL (3.8-10.6)
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
[2021-09-08 20:13] LABS: INR 0.9 (<1.2); Prothrombin Time 9.6 sec (9.0-12.0)
[2021-09-08] MEDS ORDERED: HYDROmorphone 0.5 MG/0.5 ML SYRINGE IVP STA (20:14)
[2021-09-08 20:15] LABS: Partial Thromboplastin Time 19.9 sec (22.0-30.0)
[2021-09-08 20:16] LABS: ALT 21 U/L (4-34); AST 39 U/L (14-36); African American GFR (CKD) 35 (>60 ml/min/1.73 sqM); Albumin 4.2 g/dL (3.5-5.0); Alcohol <10 mg/dL; Alkaline Phosphatase 80 U/L (38-126); Anion Gap 9 mmol/L; Blood Urea Nitrogen 11 mg/dL (7-17); Calcium 9.1 mg/dL (8.4-10.2); Carbon Dioxide 26 mmol/L (22-30); Chloride 104 mmol/L (98-107); Glucose 85 mg/dL (74-99); Non-African American GFR(CKD) 30 (>60 ml/min/1.73 sqM); Potassium 3.9 mmol/L (3.5-5.1); Sodium 139 mmol/L (137-145); Total Bilirubin 0.4 mg/dL (0.2-1.3); Total Protein 7.7 g/dL (6.3-8.2)
[2021-09-08] MEDS ORDERED: SODIUM CHLORIDE 0.9% 1,000 ML IV ONE (20:19)
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
--- NOTE | 2021-09-08 21:24 | XR ---
EXAMINATION TYPE: XR knee complete RT DATE OF EXAM: 09/08/2021 COMPARISON: NONE HISTORY: Pain TECHNIQUE: 3 view FINDINGS: There is no fracture nor dislocation. Joint spaces are normal. There is fibrous cortical de fect proximal tibia. IMPRESSION: Negative right knee exam.
--- NOTE | 2021-09-08 21:25 | XR ---
EXAMINATION TYPE: XR ankle complete RT DATE OF EXAM: 09/08/2021 COMPARISON: NONE HISTORY: Pain TECHNIQUE: 3 views FINDINGS: There is plantar calcaneal spurring. There is no fracture nor dislocation. Joint spaces are normal. IMPRESSION: No acute abnormality of the right ankle.
--- NOTE | 2021-09-08 21:26 | XR ---
EXAMINATION TYPE: XR hand complete RT DATE OF EXAM: 09/08/2021 COMPARISON: NONE HISTORY: Pain TECHNIQUE: 3 views FINDINGS: Metacarpals are intact. I see no fracture nor dislocation. Joint spaces are normal. Carpal bones are intact. IMPRESSION: Negative right hand exam. No fracture.
--- NOTE | 2021-09-08 21:26 | XR ---
EXAMINATION TYPE: XR foot complete RT DATE OF EXAM: 09/08/2021 COMPARISON: NONE HISTORY: Pain TECHNIQUE: 3 views FINDINGS: Metatarsals are intact. I see no fracture nor dislocation. There is plantar calcaneal spurr ing. Joint spaces are fairly normal. IMPRESSION: Negative right foot exam. No fracture.
--- NOTE | 2021-09-08 21:28 | XR ---
EXAMINATION TYPE: XR elbow complete RT DATE OF EXAM: 09/08/2021 COMPARISON: NONE HISTORY: Pain TECHNIQUE: 3 views FINDINGS: Elbow joint spaces are normal. I see no fracture nor dislocation. There is no sign of elbow joint effusion. IMPRESSION: Negative right elbow exam.
[2021-09-08 22:31] VITALS: BP 125/86; PULSE 97; TEMP 98.4
== END 2021-09-08 22:42 | disposition home or self-care (01) ==
LOC: EC 19:07
DX: S06.0X9A Concussion with loss of consciousness of unspecified duration, initial encounter (principal); F31.9 Bipolar disorder, unspecified; V43.62XA Car passenger injured in collision with other type car in traffic accident, initial encounter; Y92.410 Unspecified street and highway as the place of occurrence of the external cause
CPT/HCPCS: 99285; 96374; 96361; 36415; 93005; 86900; 86901; 80053; 84484; 85025; 85610; 85730; 86850; 80320; 72170; 73080; 73130; 73562; 73610; 73630; 71045; 72125; 70450; 71260; 74177; J1170; Q9967

== ENCOUNTER → 2022-02-15 | Outpatient (CLI) | payer OTHER, BC ==
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
== END | disposition home or self-care (01) ==
LOC: RADMRIMAIN 12:11
PROVIDERS: ATTEND Psychiatry & Neurology Neurology
DX: M50.323 Other cervical disc degeneration at C6-C7 level (principal); M47.812 Spondylosis without myelopathy or radiculopathy, cervical region; M99.71 Connective tissue and disc stenosis of intervertebral foramina of cervical region
CPT/HCPCS: 72141

== ENCOUNTER → 2022-05-15 | Outpatient (CLI) | payer OTHER ==
--- NOTE | 2022-05-16 08:23 | US ---
EXAMINATION TYPE: US kidneys/renal and bladder DATE OF EXAM: 05/15/2022 COMPARISON: NONE CLINICAL HISTORY: N18.31 STAGE 3 CKD. CKD EXAM MEASUREMENTS: Right Kidney: 10.2 x 4.7 x 4.5 cm Left Kidney: 10.7 x 5.5 x 4.8 cm Right Kidney: no evidence of hydronephrosis Left Kidney: no evidence of hydronephrosis Bladder: appears wnl Bilateral Jets seen: yes IMPRESSION: 1. Bilateral renal ultrasounds.
== END | disposition home or self-care (01) ==
LOC: RADUSWWP 15:35
PROVIDERS: ATTEND Internal Medicine
DX: N18.31 Chronic kidney disease, stage 3a (principal)
CPT/HCPCS: 76770

== ENCOUNTER → 2023-02-06 | Outpatient (CLI) | payer BC ==
--- NOTE | 2023-02-17 11:38 | EM ---
7 Day Event monitor note: Patient wore an event monitor for 6.5 days from 02/06/2023 through 02/13/2023. Findings: Patient's baseline heart rate was oral sinus rhythm. There were no signficant atrial fibrillation, atrial flutter episodes. There were no significant pauses greater than 2 seconds. There were a total of 45 patient activated events and automatically captured events, majority of which were disease/lightheadedness which corresponded with sinus rhythm with heart rates in the 70s to 80s and rarely with sinus tachycardia heart rates 100-110 range. There was one episode of 4 beats of wide complex tachycardia which was asymptomatic Conclusions: 70 event monitor showing normal sinus rhythm with majority of symptoms corresponding with sinus rhythm. One episode of 4 beat wide complex tachycardia which was asymptomatic. MTDD
== END | disposition home or self-care (01) ==
LOC: RADECHMAIN 07:57
PROVIDERS: ATTEND Family Medicine
DX: R55 Syncope and collapse (principal); R00.0 Tachycardia, unspecified
CPT/HCPCS: 93270